=== PATIENT | male | born 1960 | race Caucasian/White ===

== ENCOUNTER 2021-03-12 11:54 | Emergency (ER) | payer OTHER ==
[~2021-03-12] VITALS: Ht 182.9 cm; Wt 102.1 kg
[2021-03-12 12:08] VITALS: BP 152/73
--- NOTE | 2021-03-12 12:20 | NUR ---
Patient to wait in lobby for next available bed
[2021-03-12] MEDS ORDERED: NAPR-54 PO (13:37)
[2021-03-12 14:05] VITALS: BP 146/74
--- NOTE | 2021-03-12 14:05 | NUR ---
NO NURSING INTERVENTIONS DONE, NO ASSESSMENT NEEDED.
== END 2021-03-12 14:05 | disposition home or self-care (01) ==
LOC: MED 11:54
DX: S80.11XA Contusion of right lower leg, initial encounter (principal); Z79.899 Other long term (current) drug therapy; Z98.890 Other specified postprocedural states; W22.8XXA Striking against or struck by other objects, initial encounter; Y93.89 Activity, other specified; Y92.89 Other specified places as the place of occurrence of the external cause; Y99.8 Other external cause status
CPT/HCPCS: 93971; 99284; Q0092